=== PATIENT | female | born 1955 | race Caucasian/White ===

== ENCOUNTER 2019-06-25 21:57 | Inpatient (IN) | payer OTHER ==
[~2019-06-25] VITALS: Ht 172.7 cm; Wt 58.8 kg
[~2019-06-25 21:57] MED LIST: AMLO2.5T2 PO; FLUO20CA22 PO; HYDR25CA98 PO
[2019-06-25] MEDS: SOD CHLORIDE 0.9% 1,000 ML IV SCH (22:00)
[2019-06-25 22:04] VITALS: Ht 172.7 cm; Wt 58.8 kg
[2019-06-25] MEDS ORDERED: SOD CHLORIDE 0.9% 1,000 ML IV STA (22:18)
[2019-06-25] MEDS ORDERED: NA BICARBONATE 8.4% 50 ML SYG IV ONE (22:30)
[2019-06-26] MEDS ORDERED: DOCUSATE SODIUM 100 MG CAP PO PRN (01:00)
[2019-06-26] MEDS ORDERED: MAGNESIUM SULFATE 1 GM/D5W 100 ML IVPB ONE (01:00)
[2019-06-26] MEDS ORDERED: BISACODYL (EC) 5 MG TAB PO PRN (01:00)
[2019-06-26] MEDS ORDERED: ACETAMINOPHEN 325 MG TAB PO PRN ×2 (01:00)
[2019-06-26] MEDS ORDERED: NACL 0.9% 3 ML SYG IV SCH (01:00)
[2019-06-26] MEDS ORDERED: ONDANSETRON 4 MG INJ IV PRN ×2 (01:00)
[2019-06-26] MEDS ORDERED: LORAZEPAM 2 MG INJ IV PRN (01:00)
[2019-06-26] MEDS: SOD CHLORIDE 0.9% 1,000 ML IV SCH ×2 (01:16→13:26)
[2019-06-26] MEDS: CEFTRIAXONE 1 GM/50 ML (PMX) 50 ML IVPB SCH (01:55)
[2019-06-26 04:23] VITALS: BP 147/78; PULSE 53; RESP 20
[2019-06-26 07:23] VITALS: BP 155/78; PULSE 60; RESP 18
[2019-06-26 11:57] VITALS: BP 132/78; PULSE 65; RESP 18
[2019-06-26 16:08] VITALS: BP 132/71; PULSE 70; RESP 18
[2019-06-26 20:00] VITALS: BP 136/75; PULSE 65; RESP 19
[2019-06-27] VITALS (7 sets, daily range): BP systolic 130–168; BP diastolic 60–92; PULSE 64–78; RESP 16–18
[2019-06-27] MEDS: CEFTRIAXONE 1 GM/50 ML (PMX) 50 ML IVPB SCH ×2 (01:00→01:38)
[2019-06-28 02:00] VITALS: BP 155/77; PULSE 77; RESP 18
[2019-06-28 07:58] VITALS: BP 153/74; PULSE 51; RESP 18
[2019-06-28 14:00] VITALS: BP 149/71; PULSE 54; RESP 18
[2019-06-28] MEDS: FLUOXETINE 20 MG CAP PO SCH (15:13)
[2019-06-28 19:20] VITALS: BP 150/71; PULSE 68; RESP 18
[2019-06-28] MEDS: hydrOXYzine PAMOATE 25 MG CAP PO PRN (19:41)
[2019-06-29 02:10] VITALS: BP 149/69; PULSE 48; RESP 17
[2019-06-29 07:11] VITALS: BP 141/79; PULSE 50; RESP 16
[2019-06-29] MEDS: FLUOXETINE 20 MG CAP PO SCH (08:49)
[2019-06-29 13:59] VITALS: BP 175/84; PULSE 64; RESP 14
[2019-06-29] MEDS: hydrOXYzine PAMOATE 25 MG CAP PO PRN (15:26)
[2019-06-29 17:54] VITALS: BP 133/62; PULSE 58
[2019-06-29 19:16] VITALS: BP 142/65; PULSE 60; RESP 18
[2019-06-30 01:46] VITALS: BP 138/60; PULSE 65; RESP 17
[2019-06-30 07:30] VITALS: BP 156/74; PULSE 59
[2019-06-30] MEDS: FLUOXETINE 20 MG CAP PO SCH (08:02)
[2019-06-30 13:55] VITALS: BP 126/67; PULSE 64; RESP 16
[2019-06-30 19:34] VITALS: BP 159/74; PULSE 61; RESP 17
[2019-06-30] MEDS: hydrOXYzine PAMOATE 25 MG CAP PO PRN (21:57)
[2019-07-01 01:56] VITALS: BP 157/77; PULSE 62; RESP 18
[2019-07-01 08:00] VITALS: BP 138/72; PULSE 62; RESP 18
[2019-07-01] MEDS: FLUOXETINE 20 MG CAP PO SCH (08:28)
[2019-07-01 14:00] VITALS: BP 147/77; PULSE 81; RESP 16
[2019-07-01 16:00] VITALS: BP 211/76; PULSE 85; RESP 17
[2019-07-01 20:00] VITALS: BP 155/80; PULSE 63; RESP 19
[2019-07-01] MEDS: hydrOXYzine PAMOATE 25 MG CAP PO PRN (20:40)
[2019-07-02 02:00] VITALS: BP 142/69; PULSE 67; RESP 20
[2019-07-02 08:00] VITALS: BP 182/87; PULSE 72; RESP 18
[2019-07-02] MEDS: FLUOXETINE 20 MG CAP PO SCH (08:11)
[2019-07-02] MEDS: hydrOXYzine PAMOATE 25 MG CAP PO PRN (08:18)
[2019-07-02] MEDS ORDERED: hydrALAzine 20 MG INJ ONE (09:20)
[2019-07-02] MEDS ORDERED: hydrALAzine 20 MG INJ IV PRN (09:30)
[2019-07-02 10:19] VITALS: BP 148/78; PULSE 77; RESP 18
== END 2019-07-02 15:40 | disposition home or self-care (01) | DRG 917 ==
LOC: EDBD 21:57 → E/R 21:57 → 6WM 06-26 00:32 → CANRESERV 06-26 00:58 → MS3 06-27 15:52
PROVIDERS: ADMIT Family Medicine; ATTEND Hospitalist
DX: T42.4X1A Poisoning by benzodiazepines, accidental (unintentional), initial encounter (principal); G92 Toxic encephalopathy; F33.9 Major depressive disorder, recurrent, unspecified; N17.9 Acute kidney failure, unspecified; N39.0 Urinary tract infection, site not specified; F11.20 Opioid dependence, uncomplicated; Y92.512 Supermarket, store or market as the place of occurrence of the external cause; Z79.899 Other long term (current) drug therapy; F41.9 Anxiety disorder, unspecified
CPT/HCPCS: 36415; 70450; 80053; 80307; 81001; 81025; 82550; 82553; 83735; 84443; 84484; 85025; 87086; 93005; 96374; 97161; A4310; J0360; J0696; J3475; J7030